=== PATIENT | male | born 1950 | race Caucasian/White ===

== ENCOUNTER → 2017-01-11 | Outpatient (CLI) | payer OTHER, MEDICARE | END | disposition home or self-care (01) | DX: R26.2 Difficulty in walking, not elsewhere classified (principal); M17.11 Unilateral primary osteoarthritis, right knee; M25.561 Pain in right knee; M25.661 Stiffness of right knee, not elsewhere classified; M62.81 Muscle weakness (generalized) | CPT/HCPCS: 97110 GP; 97150 GO; 97161 GP; 97165 GO; G8978 GP; G8979 GP; G8980 GP; G8987 GO; G8988 GO; G8989 GO ==

== ENCOUNTER 2017-02-21 06:53 | Inpatient (IN) | payer OTHER, MEDICARE ==
[~2017-02-21] VITALS: Ht 170.2 cm; Wt 113.9 kg
[~2017-02-21 06:53] MED LIST: ASCORBIC ACID500 M3 PO; ATORVASTATIN CA10 MG PO; IRON325 M1 PO; MEGA MULTIVIT1 EAC1 PO; VITAMIN D-32000 UNI2 PO; WARFARIN SODIUM5 MG PO; WARFARIN SODIUM6 MG PO; ZESTORETIC 20-1 EAC1 PO
[2017-02-21 07:20] VITALS: BP 135/82
[2017-02-21 08:17] LABS: INTER. NORMALIZED RATIO 1.2; PROTHROMBIN TIME 12.3 (9.2-11.2)
[2017-02-21 14:05] VITALS: BP 120/74
[2017-02-21 14:30] LABS: HEMATOCRIT 37.5 % (38.0-50.0); MCH 31.1 PG (29.0-34.0); MCHC 33.1 G/DL (30.0-36.0); RBC DIS.WIDTH-CV 13.7 % (11.8-14.6); RBC DIS.WIDTH-SD 47.3 % (39-53); RED BLOOD COUNT 3.99 M/uL (4.00-5.50); WHITE BLOOD COUNT 5.5 K/uL (4.1-10.2)
[2017-02-21 14:31] LABS: PLATELET COUNT 188 K/uL (156-360)
[2017-02-21 15:37] VITALS: BP 125/57
[2017-02-21 20:28] VITALS: BP 124/71
[2017-02-22] VITALS: BP 100/55
[2017-02-22 04:00] VITALS: BP 122/68
[2017-02-22 07:23] LABS: HEMATOCRIT 35.4 % (38.0-50.0); MCV 92.2 FL (86-99)
[2017-02-22 07:49] LABS: INTER. NORMALIZED RATIO 1.2
[2017-02-22 07:55] LABS: ANION GAP 9 MEQ/L (2-14); CHLORIDE 104 MEQ/L (99-109); GFR ESTIMATE (CALCULATED) > 59 mL/min/; GLUCOSE 140 mg/dL (70-99); POTASSIUM 3.8 MEQ/L (3.7-5.4); SAMPLE HEMOLYSIS CHECK 1; SAMPLE ICTERIC CHECK 0; SAMPLE LIPEMIA CHECK 0; SODIUM 137 MEQ/L (136-147); UREA NITROGEN (BUN) 13 mg/dL (9-23)
[2017-02-22 08:23] VITALS: BP 112/67
[2017-02-22 11:33] VITALS: BP 131/73
[2017-02-22 15:44] VITALS: BP 133/68
[2017-02-22 19:53] VITALS: BP 149/79
[2017-02-23 00:02] VITALS: BP 139/78
[2017-02-23 04:16] VITALS: BP 119/74
[2017-02-23 06:44] LABS: HEMATOCRIT 36.8 % (38.0-50.0); MCV 91.5 FL (86-99)
[2017-02-23 07:28] LABS: INTER. NORMALIZED RATIO 1.5; PROTHROMBIN TIME 15.3 (9.2-11.2); PTT 59.2 (25-32)
[2017-02-23 08:20] VITALS: BP 138/81
[2017-02-23 11:35] VITALS: BP 124/81
[2017-02-23 16:08] VITALS: BP 115/86
[2017-02-23 19:48] VITALS: BP 142/84
[2017-02-24] VITALS (8 sets, daily range): BP systolic 106–153; BP diastolic 63–82
[2017-02-24 05:38] LABS: INTER. NORMALIZED RATIO 1.8; PROTHROMBIN TIME 18.7 (9.2-11.2); PTT 56.2 (25-32)
[2017-02-25 04:36] LABS: BASOPHIL COUNT 0.1 K/uL (0-0.1); EOSINOPHIL (%) 4.8 % (0-5); EOSINOPHIL COUNT 0.3 K/uL (0-0.3); HEMATOCRIT 35.3 % (38.0-50.0); IMMATURE GRANULOCYTE (%) 0.6 % (0.0-0.7); INSTRUMENT ABS NEUTROPHIL CT 4.3 K/uL; LYMPHOCYTE COUNT 1.3 K/uL (1.0-2.8); MCH 30.3 PG (29.0-34.0); MCHC 33.1 G/DL (30.0-36.0); MCV 91.5 FL (86-99); MEAN PLAT.VOLUME 10.3 uM^3 (9.0-12.4); MONOCYTE (%) 10.8 % (3-12); MONOCYTE COUNT 0.7 K/uL (0-0.8); NEUTROPHIL (%) 63.9 % (45-76); NEUTROPHIL COUNT 4.3 K/uL (1.8-6.4); PLATELET COUNT 222 K/uL (156-360); RBC DIS.WIDTH-CV 13.8 % (11.8-14.6); RBC DIS.WIDTH-SD 46.5 % (39-53); RED BLOOD COUNT 3.86 M/uL (4.00-5.50); WHITE BLOOD COUNT 6.7 K/uL (4.1-10.2)
[2017-02-25 04:49] LABS: INTER. NORMALIZED RATIO 2.1; PROTHROMBIN TIME 22.4 (9.2-11.2); PTT 63.2 (25-32)
[2017-02-25 08:27] VITALS: BP 138/85
[2017-02-25 16:24] VITALS: BP 154/75
== END 2017-02-25 16:32 | DRG 470 ==
LOC: 3WEST 06:53 → 2SOUTH 06:53 → 3WEST 13:56 → 2SOUTH 23:20 → 3WEST 02-24 09:24 → 3EAST 02-24 17:00
PROVIDERS: Internal Medicine Cardiovascular Disease; Orthopaedic Surgery
PROC: 0SRC0J9 Replacement of Right Knee Joint with Synthetic Substitute, Cemented, Open Approach (ICD-10-PCS; principal; 2017-02-21)
DX: M17.11 Unilateral primary osteoarthritis, right knee (principal); I10 Essential (primary) hypertension; E78.5 Hyperlipidemia, unspecified; I45.10 Unspecified right bundle-branch block; E66.9 Obesity, unspecified; Z68.39 Body mass index [BMI] 39.0-39.9, adult; Z95.2 Presence of prosthetic heart valve; Z79.01 Long term (current) use of anticoagulants; Z87.891 Personal history of nicotine dependence
CPT/HCPCS: 73560; 80048; 85014; 85018; 85025; 85027; 85610; 85730; 97530 GO; C1713; J0690; J2250; J2405; J7050

== ENCOUNTER 2018-03-12 09:39 | Emergency (ER) | payer OTHER, MEDICARE ==
[~2018-03-12] VITALS: Ht 167.6 cm; Wt 115.3 kg
[2018-03-12 10:04] LABS: BASOPHIL (%) 0.6 % (0-1); BASOPHIL COUNT 0.1 K/uL (0-0.1); EOSINOPHIL (%) 0.6 % (0-5); EOSINOPHIL COUNT 0.1 K/uL (0-0.3); HEMATOCRIT 44.7 % (38.0-50.0); HEMOGLOBIN 15.4 G/DL (12.5-16.6); IMMATURE GRANULOCYTE (%) 0.3 % (0.0-0.7); LYMPHOCYTE (%) 11.4 % (15-42); LYMPHOCYTE COUNT 1.3 K/uL (1.0-2.8); MCH 30.7 PG (29.0-34.0); MCHC 34.5 G/DL (30.0-36.0); MCV 89.2 FL (86-99); MONOCYTE (%) 10.4 % (3-12); MONOCYTE COUNT 1.2 K/uL (0-0.8); NEUTROPHIL (%) 76.7 % (45-76); PLATELET COUNT 229 K/uL (156-360); RBC DIS.WIDTH-CV 13.4 % (11.8-14.6); RBC DIS.WIDTH-SD 43.9 % (39-53); RED BLOOD COUNT 5.01 M/uL (4.00-5.50); WHITE BLOOD COUNT 11.7 K/uL (4.1-10.2)
[2018-03-12 10:12] LABS: CHLORIDE 107 mEq/L (99-109); POTASSIUM 4.1 mEq/L (3.7-5.4); SODIUM 141 mEq/L (136-147)
[2018-03-12 10:14] LABS: GLUCOSE 135 mg/dL (70-99)
[2018-03-12 10:18] LABS: CREATININE 1.1 mg/dL (0.6-1.3); GFR ESTIMATE (CALCULATED) > 59 mL/min/ (58.99-99999)
[2018-03-12 10:19] LABS: UREA NITROGEN (BUN) 15 mg/dL (9-23)
[2018-03-12] MEDS ORDERED: AUGMENTIN875 MG PO (12:34)
[2018-03-12] MEDS ORDERED: PREDNISONE20 MG PO (12:34)
[2018-03-12 12:47] VITALS: BP 142/79
== END 2018-03-12 12:49 | disposition home or self-care (01) ==
LOC: EME 09:39
DX: J02.9 Acute pharyngitis, unspecified (principal); I10 Essential (primary) hypertension; Z95.2 Presence of prosthetic heart valve; Z79.01 Long term (current) use of anticoagulants; Z87.891 Personal history of nicotine dependence
CPT/HCPCS: 70491; 80048; 83605; 85025; 99281; 99284; J0295; J1100; J7040; J7050

== ENCOUNTER 2018-03-26 09:52 | Emergency (ER) | payer OTHER, MEDICARE ==
[~2018-03-26] VITALS: Ht 170.2 cm; Wt 114.2 kg
[~2018-03-26 09:52] MED LIST changes: +AUGMENTIN875 MG PO; +PREDNISONE20 MG PO
[2018-03-26] MEDS ORDERED: PREDNISONE20 MG PO (11:55)
[2018-03-26] MEDS ORDERED: VALTREX1000 MG PO (11:55)
[2018-03-26 12:17] VITALS: BP 137/98
== END 2018-03-26 12:17 | disposition home or self-care (01) ==
LOC: EME 09:52
DX: G51.0 Bell's palsy (principal); I25.10 Atherosclerotic heart disease of native coronary artery without angina pectoris; Z79.01 Long term (current) use of anticoagulants; Z87.891 Personal history of nicotine dependence; Z95.2 Presence of prosthetic heart valve
CPT/HCPCS: 70450; 99281; 99283